=== PATIENT | female | born 1990 | race Hispanic/Latino ===

== ENCOUNTER 2025-07-01 23:53 | Emergency (ER) | payer BC ==
[~2025-07-01] VITALS: Ht 162.6 cm; Wt 92.1 kg
--- NOTE | 2025-07-02 00:02 | NUR ---
UA CUP PROVIDED
--- NOTE | 2025-07-02 00:21 | NUR ---
PT HAS NOT YET COLLECTED A URINE
--- NOTE | 2025-07-02 01:01 | ERN ---
ED Note History of Present Illness Stated Complaint: ORAL PAIN, POST WISDOM TOOTH REMOVAL Chief Complaint: Post-Op Problem Time Seen by MD: 23:56 Dictation: This is an extremely pleasant 35-year-old female who presented to the emergency room with complaints of severe pain on the right side of the oral cavity and teeth which is radiating to the right ear. She also reports mild swelling of the face on the right side. She underwent wisdom teeth removal on 06/27/2025 in [place] and she was given an antibiotic and diclofenac for pain management. Patient has been doing that but today the pain was so severe she was concerned and came in for evaluation she stated that she took Advil at around 2:00 p.m.. No difficulty swallowing no drooling. Because of the pain she is unable to open the mouth completely. Temperature 98.4 pulse 100 respirations 20 blood pressure 123/86 pulse oximetry 99% on room air Allergies: Coded Allergies: No Known Allergies (Unverified Allergy, Unknown, 07/01/25) Home Meds Active Scripts Ketorolac Tromethamine (Toradol) 10 Mg Tab, 10 MG PO QID for pain for 5 Days, #20 TAB 0 Refills Prov:QUAN BAINS MD 07/02/25 Past Medical History Past Medical History: No Pertinent History Surgical History: Other Surgical History Other: RT UPPER WISDOM TOOTH 06/27/25 Family History: Negative Social History: Negative LMP: Jun 27, 2025 RN Note Reviewed/Agreed w/PFSH: Yes Review of System Dictation Constitutional: Negative for fever,chills, and weight loss Eyes: Negative for injury, pain,redness, and discharge ENT: Positive for severe pain or swelling of the right side of the face. Also positive for pain in the molars area where she had the wisdom teeth removed Cardiovascular: Negative for chest pain, palpitations, and edema Respiratory: Negative for shortness of breath, cough, and wheezing, Abdomen/GI: Negative for abdominal pain, nausea, vomiting, diarrhea, and constipation Back: Negative for injury and pain : Negative for injury, bleeding and discharge MS/Extremity: Negative for injury and deformity Skin: Negative for rash, and discoloration Neuro: Negative for headache, weakness, numbness, tingling, and seizure Psych: Negative for suicide ideation, homicidal ideation, and hallucinations Initial Vital Sign VS Vital Signs Date Time Temp Pulse Resp B/P (MAP) Pulse Ox O2 Delivery O2 Flow Rate FiO2 07/01/25 23:55 98.4 100 20 123/86 99 Room Air 07/02/25 01:31 0 21 Physical Exam Dictation General: awake, alert, NAD Head/Face: Normocephalic, atraumatic right side of the face is very mildly swollen. No drainage or pus from the oral cavity or externally Eyes: PERRL, EOMI, vision at baseline ENT: oral cavity clear, TMs clear, no signs of infection mild inflammation in the postop wisdom teeth area Neck: Trachea midline, supple, no nuchal rigidity Cardiovascular: RRR, normal S1/S2, No MRGs, no JVD Respiratory: CTAB, no respiratory distress, No rales or wheezes Abdomen: Soft, non-tender, non-distended, normal bowel sounds, no guarding or rebound. Skin: Warm, dry, normal turgor, no rash MS/Extremity: Pulses equal, no cyanosis, neurovascular intact, FROM Neuro: COAx4, GCS 15, strength 5/5, CN 2-12 intact, normal cerebellar exam, normal gait, Psych: Normal behavior, mood, and affect normal Extremities-trace edema without any palpable cords, Homans sign is negative Results (Laboratory/Radiology) Laboratory/Radiology Laboratory Tests Test 07/02/25 00:34 Urine HCG, Qualitative NEGATIVE (NEGATIVE) ED Course ED Course Orders Procedure Category Date Status Time ,Urine Test LAB 07/02/25 Complete 00:02 Ketorolac PHA 07/02/25 Complete Tromethamine 30mg/Ml 01:00 Morphine 4mg Syg PHA 07/02/25 Complete (Morphine 4mg Syg) 01:00 Lidocaine Hcl 2% PHA 07/02/25 In Process Viscous (Lidocaine Hcl 02:30 Current Medications Medications (Trade) Dose Ordered Sig/Isaac Route PRN Reason Start Time Stop Time Status Last Admin Dose Admin Ketorolac Tromethamine (toRADol) 30 mg ONCE ONCE IM 07/02/25 01:00 07/02/25 01:01 DC 07/02/25 01:28 Lidocaine HCl (Lidocaine HCl 2% Viscous) 15 ml ONCE ONCE PO 07/02/25 02:30 07/02/25 02:31 Morphine Sulfate (morPHINE 4MG SYG) 4 mg ONCE ONCE IM 07/02/25 01:00 07/02/25 01:01 DC 07/02/25 01:29 Vital Signs Date Time Temp Pulse Resp B/P (MAP) Pulse Ox O2 Delivery O2 Flow Rate FiO2 07/02/25 01:31 98.2 97 18 126/88 99 Room Air* 0 21 07/01/25 23:55 98.4 100 20 123/86 99 Room Air We will perform diagnostic labs, and administer medications according to the patient's complaint. Once the results are available, will review and personally interpreted the labs to rule out any acute life-threatening emergency the trach require immediate intervention and treatment. I will then re-evaluate the patient after treatment and diagnostic exams have return to determine whether the patient requires any further testing, can safely be discharged home or need further admission to hospital for additional treatment and evaluation. Urine test is negative Patient feels significantly improved with symptomatic pain management. She will be discharged to home on Toradol Medical Decision Making MDM Differential diagnosis: Postop pain, postop infection, gingivitis, periodontitis, dental caries Rationale: Tests considered and ordered secondary to shared decision making include: Previous outside records reviewed: Old ER visits. Risk of complication and/or morbidity or mortality of patient management: None Medications-Per medication reconciliation Need for hospitalization: Patient does not meet criteria for hospitalization. Need for emergency major/minor surgery: No There are no social concerns with this patient. Prescription drug management Prescriptions will include symptomatic care Patient's prior external medical records from other ER visits were reviewed by me as indicated. Prior testing and results from previous visits were reviewed. Prior tests were taken into account with medical decision making and resource utilization, independent historian/historians were used to obtain complete medical history. I independently interpreted the test that were performed, results were reviewed by me and considered findings on radiology if ordered. Medical management and examination interpretation discussions were had by me with other qualified healthcare professionals as indicated for the patient's care. Problem List Problem List: (1) Postoperative pain (2) S/P wisdom tooth extraction DX & DISP Disposition: Discharge Departure Impression: Primary Impression: Postoperative pain Additional Impression: S/P wisdom tooth extraction Condition: Stable Scripts Ketorolac Tromethamine (Toradol) 10 Mg Tab 10 MG PO QID for pain for 5 Days, #20 TAB 0 Refills Prov: QUAN BAINS MD 07/02/25 Additional Instructions: Patient and the caregiver have been informed of all the diagnostic tests and the imaging conducted during the today's visit to the emergency room and has verbalized understanding of the results I have personally reviewed and interpreted all diagnostic exams performed here in the ER today as well as the vital signs documented by the nursing staff. The patient is now being discharged to home and should follow up with the primary care physician or the specialist as directed by the ER staff. Follow-up with primary care provider in 1 to 2 days. Take medications as directed here in the emergency room. Okay to continue home medications unless otherwise discussed during your visit in the emergency room today. Return to your nearest emergency room if symptoms worsen or if there is no improvement. Call 911 if you need immediate assistance. Take Tylenol or Motrin [id number] as needed and if no contraindications are present. Increase oral hydration. A wound culture or urine culture was ordered here in the emergency room department please follow-up with primary care provider and advise them to get repeat ports from our facility. If you had any Shorty wrap/splints that were applied here, please do not remove them until you see your primary care or specialty. Please do not take ibuprofen Advil, diclofenac , Naprosyn or naproxen or any no nsteroidal anti-inflammatory agents when you take Toradol I have also given her some viscous lidocaine to apply to the area for some pain relief Referrals: NONE (PCP) QUAN BAINS MD Jul 02, 2025 01:01
[2025-07-02 01:31] VITALS: BP 126/88; PULSE 97; RESP 18; TEMP 98.2; O2SAT 99
[2025-07-02] MEDS ORDERED: KETO10 PO (01:59)
[2025-07-02] MEDS ORDERED: LIDOCAINE HCL 2% VISCOUS 15 ML UDCUP PO ONE (02:30)
[2025-07-02] MEDS ORDERED: LIDOCAINE HCL 2% VISCOUS 15 ML UDCUP ONE (02:32)
== END 2025-07-02 02:29 | disposition home or self-care (01) ==
LOC: EDH 23:53
DX: G89.18 Other acute postprocedural pain (principal); Z79.899 Other long term (current) drug therapy; Z98.890 Other specified postprocedural states
CPT/HCPCS: 99284; 81025; 96372 ×2; J1885; J2270

== ENCOUNTER 2025-10-03 19:05 | Emergency (ER) | payer BC ==
[~2025-10-03] VITALS: Ht 162.6 cm; Wt 92.5 kg
[2025-10-03] MEDS: TRIAMCINOLONE ACETONIDE 40 MG/ML 1ML VIAL SQ SCH (20:11)
[2025-10-03] MEDS: ORPHENADRINE 60MG/2ML IM SCH (20:12)
--- NOTE | 2025-10-03 21:19 | HMCIMG ---
EXAM: CR Lumbar Spine, 2 views. CLINICAL HISTORY: Pain. COMPARISON: None provided. FINDINGS: Lumbar alignment is within normal limits. Normal intervertebral disc spaces. Normal vertebral body heights. No acute fracture. Soft tissues are within normal limits. IMPRESSION: No acute bony abnormality is evident. /[place]
--- NOTE | 2025-10-03 21:23 | ERN ---
ED Note History of Present Illness Stated Complaint: BACK PAIN Chief Complaint: Back Pain or Injury Time Seen by MD: 19:12 Time Seen by Midlevel: 19:15 Dictation: 35-year-old female with no past medical history coming in with complaints of lower back pain onset a few hours ago. Patient states he picked up by heavy dog crate, then bent over to pick has been off the floor and felt tightness in her back. Denies any incontinence, paresthesias. Allergies: Coded Allergies: No Known Allergies (Unverified Allergy, Unknown, 07/01/25) Home Meds Active Scripts Ketorolac Tromethamine (Toradol) 10 Mg Tab, 10 MG PO QID for pain for 5 Days, #20 TAB 0 Refills Prov:QUAN BAINS MD 07/02/25 Past Medical History Past Medical History: No Pertinent History Surgical History: Other, Bariatric Surgery Surgical History Other: gastric sleeve Family History: Negative Social History: Negative Review of System Dictation Constitutional: Negative for fever,chills, and weight loss Eyes: Negative for injury, pain,redness, and discharge ENT: Negative for injury,pain or swelling Cardiovascular: Negative for chest pain, palpitations, and edema Respiratory: Negative for shortness of breath, cough, and wheezing, Abdomen/GI: Negative for abdominal pain, nausea, vomiting, diarrhea, and constipation Back: Negative for injury and pain : Negative for injury, bleeding and discharge MS/Extremity: Negative for injury and deformity, complaining of back pain Skin: Negative for rash, and discoloration Neuro: Negative for headache, weakness, numbness, tingling, and seizure Psych: Negative for suicide ideation, homicidal ideation, and hallucinations Review of Systems: was completed Initial Vital Sign VS Vital Signs Date Time Temp Pulse Resp B/P (MAP) Pulse Ox O2 Delivery O2 Flow Rate FiO2 10/03/25 19:11 98.4 85 18 128/76 99 Room Air 0 10/03/25 19:18 21 Physical Exam Dictation General: awake, alert, NAD Head/Face: Normocephalic, atraumatic Eyes: PERRL, EOMI, vision at baseline ENT: oral cavity clear, TMs clear, no signs of infection Neck: Trachea midline, supple, no nuchal rigidity Cardiovascular: RRR, normal S1/S2, No MRGs, no JVD Respiratory: CTAB, no respiratory distress, No rales or wheezes Abdomen: Soft, non-tender, non-distended, normal bowel sounds, no guarding or rebound. Skin: Warm, dry, normal turgor, no rash MS/Extremity: Pulses equal, no cyanosis, neurovascular intact, FROM, tenderness on palpation to the left lower back, no L-spine midline tenderness Neuro: COAx4, GCS 15, strength 5/5, CN 2-12 intact, normal cerebellar exam, normal gait, Psych: Normal behavior, mood, and affect normal ED Course ED Course Orders Procedure Category Date Status Time Lumbar Spine 2-3vws RAD 10/03/25 Taken 19:41 Orphenadrine Citrate PHA 10/03/25 In Process (Norflex) 20:00 Triamcinolone Acet PHA 10/03/25 In Process 40mg/Ml 1ml (Kenalog 20:00 Ketorolac PHA 10/03/25 In Process Tromethamine 15mg/Ml 20:00 Current Medications Medications (Trade) Dose Ordered Sig/Isaac Route PRN Reason Start Time Stop Time Status Last Admin Dose Admin Ketorolac Tromethamine (toRADol) 15 mg ONCE IM 10/03/25 20:00 10/03/25 23:59 10/03/25 20:11 Orphenadrine Citrate (Norflex) 60 mg ONCE IM 10/03/25 20:00 10/03/25 23:59 10/03/25 20:12 Triamcinolone Acetonide (Kenalog 40) 40 mg ONCE SQ 10/03/25 20:00 10/03/25 23:59 10/03/25 20:11 Vital Signs Date Time Temp Pulse Resp B/P (MAP) Pulse Ox O2 Delivery O2 Flow Rate FiO2 10/03/25 19:18 98.4 85 18 128/76 98 Room Air* 0 21 10/03/25 19:11 98.4 85 18 128/76 99 Room Air 0 Medical Decision Making MDM MDM: 35-year-old female with no past medical history coming in with complaints of lower back pain onset a few hours ago. Patient states he picked up by heavy dog crate, then bent over to pick has been off the floor and felt tightness in her back. States she has been been able to ambulate to the bathroom because of the pain. Denies any incontinence, paresthesias. X-rays of the L-spine were interpreted by ER MD. No acute findings. After medication patient states feels much better and able to ambulate and go to the bathroom. Educated that we will prescribe medications to take home and follow up with PCP in 1-2 days. Also educated on red flag symptoms of when to return back to the ER, patient verbalized understanding, answered all questions. Differential diagnosis: Back pain, muscle spasm, Rationale: Tests considered and ordered secondary to shared decision making include: Previous outside records reviewed: Old ER visits. Risk of complication and/or morbidity or mortality of patient management: None Medications-Per medication reconciliation Need for hospitalization: Patient does not meet criteria for hospitalization. Need for emergency major/minor surgery: No There are no social concerns with this patient. Prescription drug management Prescriptions will include symptomatic care Patient's prior external medical records from other ER visits were reviewed by me as indicated. Prior testing and results from previous visits were reviewed. Prior tests were taken into account with medical decision making and resource utilization, independent historian/historians were used to obtain complete medical history. I independently interpreted the test that were performed, results were reviewed by me and considered findings on radiology if ordered. Medical management and examination interpretation discussions were had by me with other qualified healthcare professionals as indicated for the patient's care. DX & DISP Disposition: Discharge Departure Impression: Primary Impression: Muscle spasm Condition: Stable Scripts Methocarbamol (Methocarbamol) 1,000 Mg Tablet 500 MG PO TID for 5 Days, #15 TAB Prov: MOODY BROWER CNP 10/03/25 Lidocaine (Lidocaine) 4 % Adh..patch 1 PATCH TP DAILY for 10 Days, #10 PATCH 0 Refills Prov: MOODY BROWER CNP 10/03/25 Ketorolac Tromethamine (Ketorolac Tromethamine) 10 Mg Tablet 1 TAB PO Q6HPRN PRN for pain for 5 Days, #20 TAB 0 Refills Prov: MOODY BROWER CNP 10/03/25 Additional Instructions: Follow up with your PCP in 1-2 days. If you develop any numbness to your legs, weakness, incontinence return to the hospital. Referrals: SIDDHARTH GRAF MD (PCP) Time of Disposition: 21:22 I have reviewed the case, and I agree with, Diagnosis and Plan MOODY BROWER CNP Oct 03, 2025 21:23
[2025-10-03 21:28] VITALS: BP 124/79; PULSE 70; RESP 18; TEMP 98.5; O2SAT 99
== END 2025-10-03 21:34 | disposition home or self-care (01) ==
LOC: EDH 19:05
DX: M62.830 Muscle spasm of back (principal); M54.50 Low back pain, unspecified; Z98.84 Bariatric surgery status
CPT/HCPCS: 99284; 72100; 96372 ×3; J1885; J3301; J2360